=== PATIENT | female | born 1970 | race Hispanic/Latino ===

== ENCOUNTER 2020-01-03 05:57 | Day surgery (SDC) | payer OTHER ==
--- NOTE | 2019-12-30 09:36 | Anesthesia Consultation ---
Anesthesia Consult and Med Hx Date of service: 01/04/20 - Airway Anesthetic Teeth Evaluation: Good ROM Head & Neck: Adequate Mental/Hyoid Distance: Adequate Mallampati Class: Class I Intubation Access Assessment: Good - Pre-Operative Health Status ASA Pre-Surgery Classification: ASA3 Proposed Anesthetic Plan: General - Cardiovascular System Hx Hypertension: Yes (RECENT DX) - Central Nervous System Hx Neuromuscular Disorder: Yes (Neuropathy; chronic pain) Hx Back Pain: Yes (Arthritis) Hx Psychiatric Problems: Yes (Anxiety) - Other Systems Hx Alcohol Use: Yes Hx Substance Use: No
[2020-01-03] MEDS ORDERED: MIDAZOLAM 2 MG/2 ML INJ IV NR (06:00)
[2020-01-03] MEDS ORDERED: ACETAMINOPHEN 500 MG TAB PO SCH (06:00)
[2020-01-03] MEDS ORDERED: PREGABALIN 75 MG CAP PO SCH (06:00)
[2020-01-03] MEDS ORDERED: LACTATED RINGERS 1,000 ML IV SCH (06:00)
[2020-01-03] MEDS ORDERED: MAGNESIUM OXIDE 400 MG TAB PO SCH (06:00)
[2020-01-03] MEDS ORDERED: BACTERIOSTATIC SODIUM CHLORIDE 0.9% 30 ML VIAL INFILTRATI ONE (06:48)
--- NOTE | 2020-01-03 07:09 | Anesthesia Day of Surgery ---
Anesthesia Day of Surgery - Day of Surgery Patient Examined: Yes Patient H&P Reviewed: Yes Patient is NPO: Yes
[2020-01-03] MEDS ORDERED: GELATIN SPONGE SIZE 100 TP ONE (07:19)
[2020-01-03] MEDS ORDERED: BUPIVACAINE/PF (0.5%) 5 MG/1 ML 30 ML VIAL INFILTRATI ONE (07:19)
[2020-01-03] MEDS ORDERED: ONDANSETRON 4 MG/2 ML INJ ONE ×2 (07:20→08:20)
[2020-01-03] MEDS ORDERED: BACITRACIN 50,000 UNIT VIAL ONE (07:20)
[2020-01-03] MEDS ORDERED: LIDOCAINE 0.5%/EPINEPHRINE 1:200,000 VIAL (50 ML) MDV INFILTRATI ONE ×2 (07:20→08:10)
[2020-01-03] MEDS ORDERED: SODIUM CHLORIDE P/F VIAL 10 ML 10 ML ONE (07:20)
[2020-01-03] MEDS ORDERED: ROCURONIUM 50 MG/5 ML INJ IV ONE (07:20)
[2020-01-03] MEDS ORDERED: propofoL 200 MG/20 ML VIAL IV ONE (07:21)
[2020-01-03] MEDS ORDERED: THROMBIN (RECOMBINANT) 5,000 UNIT VIAL TP ONE (07:21)
[2020-01-03] MEDS ORDERED: fentaNYL 100 MCG/2 ML INJ ONE (07:21)
[2020-01-03] MEDS ORDERED: ONDANSETRON 4 MG/2 ML INJ IV PRN (07:31)
[2020-01-03] MEDS ORDERED: HYDROmorphone 1 MG/1 ML INJ IV PRN (07:31)
[2020-01-03] MEDS ORDERED: BACITRACIN 50,000 UNIT VIAL IR ONE (08:10)
[2020-01-03] MEDS ORDERED: KETOROLAC 30 MG/1 ML INJ ONE (08:20)
[2020-01-03] MEDS ORDERED: dexAMETHasone 20 MG/5 ML VIAL ONE (08:20)
--- NOTE | 2020-01-03 08:30 | Post Operative Note ---
Date of procedure: 01/03/20 Post-op diagnosis: same Procedure: Removal of spinal cord stimulator and generator Anesthesia: AUREA Surgeon: SAILAJA WOODARD Veneer Marker: NEREIDA WAYNE II Estimated blood loss: minimal Pathology: none Specimen disposition: discarded Condition: stable Disposition: same day
[2020-01-03 09:46] VITALS: BP 106/65
--- NOTE | 2020-01-03 14:09 | Post Anesthesia Evaluation ---
- Post Anesthesia Evaluation Patient Participated: Yes Airway Patent: Yes Stable Respiratory Function: Yes Nausea/Vomiting: No Temp > 96.8F: Yes Pain Manageable: Yes Adequeate Hydration: Yes Anesthesia Complications: No
--- NOTE | 2020-01-09 10:11 | Operative Report ---
PREOPERATIVE DIAGNOSIS: Failure of spinal cord stimulator implant placed by outside physician. POSTOPERATIVE DIAGNOSIS: Failure of spinal cord stimulator implant placed by outside physician. PROCEDURES: 1. Removal of percutaneously placed electrodes for spinal cord stimulator. 2. Removal of internal programmable generator of spinal cord stimulator. 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 ADVERSE COMPLICATIONS: None noted. Time out observed. PREOPERATIVE NOTE: The patient is a pleasant female who unfortunately underwent interventional pain procedure a number of months ago for spinal cord stimulator placement. The implant did not provide any sustained relief. The implant was placed via percutaneous placement. It appears as though one of the percutaneous leads have migrated significantly. The patient no longer wanted the implant and wished to have it all removed. She understood the risks, benefits, options, and outcomes regarding surgery and agreed to proceed. DESCRIPTION OF PROCEDURE: The patient was taken to the operative theater and was intubated by Anesthesia. She was given appropriate anesthesia and medications by the Anesthesia team. She was then carefully and gently placed prone on the operating table, taking great care to avoid undue pressure at all pressure points. The thoracolumbar area was then prepped and draped. A timeout was observed confirming the patient and the procedure. The previous incision that overlie the generator was demarcated and infiltrated with local anesthetic. It was then incised with a #10 blade. Dissection was taken down through the soft tissue and the generator was removed. I then saw one of the percutaneous leads notably migrated into the soft tissue. I then disconnected to the machine. We then removed the remaining percutaneous lead. At this point, 8 electrodes were noted in each lead, so we knew that the entire system was removed. Copious irrigation was then placed. A multilayer closure was then performed. The patient tolerated the procedure well and was then placed on the OR stretcher, extubated and taken to recovery room in stable condition. She was subsequently discharged home. JOB# [id number] /FARA
== END 2020-01-03 05:58 | disposition home or self-care (01) ==
LOC: OR 05:57
PROVIDERS: ATTEND Neurological Surgery
DX: T85.192A Other mechanical complication of implanted electronic neurostimulator of spinal cord electrode (lead), initial encounter (principal); G89.4 Chronic pain syndrome; G62.9 Polyneuropathy, unspecified; I10 Essential (primary) hypertension; M19.90 Unspecified osteoarthritis, unspecified site; F41.9 Anxiety disorder, unspecified; Z98.890 Other specified postprocedural states; Z90.49 Acquired absence of other specified parts of digestive tract; Z88.0 Allergy status to penicillin; Z79.899 Other long term (current) drug therapy; Z90.721 Acquired absence of ovaries, unilateral; Z90.710 Acquired absence of both cervix and uterus; Z98.891 History of uterine scar from previous surgery; Z72.89 Other problems related to lifestyle; Z80.8 Family history of malignant neoplasm of other organs or systems; Y92.89 Other specified places as the place of occurrence of the external cause; Y82.8 Other medical devices associated with adverse incidents
CPT/HCPCS: 63661; 63688; J1100; J1885; J2250; J2405; J2704; J3010; J7120; A4649